=== PATIENT | female | born 1990 | race Caucasian/White ===

== ENCOUNTER 2025-04-22 14:26 | Inpatient (IN) | payer SELFPAY ==
[~2025-04-22] VITALS: Ht 172.7 cm; Wt 77.1 kg
[2025-04-22] MEDS: IV NS 0.9% 1,000 ML BAG IV ONE (16:00)
[2025-04-22 16:28] LABS: PLATELET COUNT (AUTO) 366 K/uL (150-450); RED BLOOD CELL COUNT(AUTO) 3.69 MIL/uL (4.0-5.2); RED CELL DISTRIBUTION WIDTH 12.6 % (11.5-15.0); WHITE BLOOD COUNT (AUTO) 10.4 K/uL (4.3-11.0)
[2025-04-22] MEDS ORDERED: LEVOFLOXACIN 750 MG /D5W 150ML 150 ML IV ONE (16:32)
[2025-04-22] MEDS ORDERED: ACETAMINOPHEN ES 500 MG TABLET ONE (16:33)
[2025-04-22] MEDS: LEVOFLOXACIN 750 MG /D5W 150ML 150 ML IV ONE (16:40)
[2025-04-22 16:42] LABS: INR 1.2 (0.91-1.10)
[2025-04-22 16:43] LABS: LACTIC ACID 0.8 mmol/L (0.4-2.0)
[2025-04-22 16:48] LABS: CALCIUM, SERUM 8.6 mg/dL (8.5-10.1); CREATININE 0.5 mg/dL (0.6-1.3); SODIUM SERUM 141.0 mmol/L (136-145); UREA NITROGEN, BLOOD 11.0 mg/dL (7-18)
[2025-04-22] MEDS: ACETAMINOPHEN ES 500 MG TABLET PO ONE (16:50)
[2025-04-22 16:52] LABS: ASPARTATE AMINOTRANSFERASE 18.0 U/L (15-37); TOTAL PROTEIN, SERUM 7.6 g/dL (6.4-8.2)
[2025-04-22 17:29] LABS: APPEARANCE,URINE SLIGHTLY CLOUDY (CLEAR); BLOOD, URINE NEGATIVE Ery/uL (NEGATIVE); LEUKOCYTE ESTERASE ,URINE NEGATIVE (NEGATIVE); NITRITE, URINE POSITIVE (NEGATIVE); UGLUCOSE NEGATIVE (NEGATIVE)
[2025-04-22 17:48] LABS: ADD URINE CULTURE YES
[2025-04-22] MEDS ORDERED: hydrALAZINE HCL IV 20 MG VIAL IV PRN (18:30)
[2025-04-22] MEDS ORDERED: MORPHINE SULFATE INJ 2 MG/ML DISP.SYRIN IV PRN (18:30)
[2025-04-22] MEDS ORDERED: D-MANNOSE PO (19:01)
[2025-04-22] MEDS ORDERED: MULT-213 PO (19:01)
[2025-04-22] MEDS ORDERED: ONDANSETRON HCL/PF 4 MG/2 ML VIAL ONE (19:02)
[2025-04-22] MEDS: ONDANSETRON HCL/PF 4 MG/2 ML VIAL IVP PRN (19:06)
[2025-04-22] MEDS: IV NS 0.9% 1,000 ML IV SCH (22:34)
[2025-04-22] MEDS: CIPROFLOXACIN IV RTU 400 MG in PREMIX 1 EA IV SCH (22:34)
[2025-04-22] MEDS: ACETAMINOPHEN 325 MG TABLET PO PRN (22:39)
[2025-04-22] MEDS: HEPARIN SODIUM, PORCINE 5000 UNITS/1 ML VIAL SQ SCH (22:46)
[2025-04-23] MEDS: METOCLOPRAMIDE HCL 10 MG/2 ML VIAL IV PRN (00:21)
[2025-04-23] MEDS: BACLOFEN (10 MG) 10 MG TABLET PO PRN (02:26)
[2025-04-23 08:00] VITALS: BP 121/83; TEMP 99; O2SAT 98
[2025-04-23 16:00] VITALS: BP 108/68; TEMP 97.9; O2SAT 97
[2025-04-23 20:00] VITALS: BP 125/84; TEMP 98.1; O2SAT 99
[2025-04-24 08:00] VITALS: BP 124/88; TEMP 97.3; O2SAT 98
[2025-04-24 10:00] LABS: PLATELET COUNT (AUTO) 391 K/uL (150-450); RED BLOOD CELL COUNT(AUTO) 3.57 MIL/uL (4.0-5.2); RED CELL DISTRIBUTION WIDTH 12.6 % (11.5-15.0); WHITE BLOOD COUNT (AUTO) 8.8 K/uL (4.3-11.0)
[2025-04-24 10:10] LABS: CALCIUM, SERUM 8.5 mg/dL (8.5-10.1); CREATININE 0.5 mg/dL (0.6-1.3); PHOSPHORUS 3.1 mg/dL (2.5-4.9); SODIUM SERUM 140.0 mmol/L (136-145); UREA NITROGEN, BLOOD 6.0 mg/dL (7-18)
[2025-04-24] MEDS: POTASSIUM CHLORIDE 20 MEQ TAB.PRT.SR PO ONE (12:37)
[2025-04-24 16:00] VITALS: TEMP 98.4; O2SAT 95
[2025-04-24 20:00] VITALS: BP 126/78; TEMP 98.6; O2SAT 94; O2SAT 97
[2025-04-24] MEDS: CIPROFLOXACIN HCL 500 MG TABLET PO SCH (21:32)
[2025-04-25 08:00] VITALS: BP 123/83; TEMP 97.9; O2SAT 96
[2025-04-25 10:00] VITALS: BP 123/83; TEMP 97.9; O2SAT 96
[2025-04-25] MEDS: PROPRANOLOL HCL 10 MG TABLET PO SCH ×2 (12:00→21:00)
[2025-04-25 15:16] LABS: APPEARANCE,URINE CLEAR (CLEAR); BLOOD, URINE NEGATIVE Ery/uL (NEGATIVE); LEUKOCYTE ESTERASE ,URINE NEGATIVE (NEGATIVE); NITRITE, URINE NEGATIVE (NEGATIVE); UGLUCOSE NEGATIVE (NEGATIVE)
[2025-04-25 20:00] VITALS: BP 135/96; TEMP 98.4; O2SAT 97
[2025-04-25] MEDS: AZTREONAM 2 G in IV NS 0.9% 100 ML IV SCH (20:57)
[2025-04-26 08:00] VITALS: BP 138/109; TEMP 98.2; O2SAT 97
[2025-04-26] MEDS: MINERAL OIL/PETROLATUM,WHITE 120 GM JAR TP SCH (08:30)
[2025-04-26 16:00] VITALS: BP 116/83; TEMP 97.5; O2SAT 98
[2025-04-26 20:00] VITALS: BP 95/59; TEMP 98.1; O2SAT 97
[2025-04-26 20:32] VITALS: BP 95/59; TEMP 98.1; O2SAT 97
[2025-04-27 08:00] VITALS: BP 144/104; TEMP 97.9; O2SAT 96
[2025-04-27 09:21] VITALS: BP 144/104
[2025-04-27] MEDS ORDERED: BACL10TA PO (12:43)
[2025-04-27] MEDS ORDERED: ACET325T53 PO (12:43)
[2025-04-27] MEDS ORDERED: AMOX-430 PO (12:43)
[2025-04-27 12:47] VITALS: TEMP 97.9
== END 2025-04-27 16:22 | disposition home or self-care (01) | DRG 871 ==
LOC: ER 15:27 → TELE 20:43 → MED 21:11
PROVIDERS: ADMIT Internal Medicine; ATTEND Nurse Practitioner Acute Care
DX: A41.9 Sepsis, unspecified organism (principal); G82.50 Quadriplegia, unspecified; D68.59 Other primary thrombophilia; G90.89 Other disorders of autonomic nervous system; R65.20 Severe sepsis without septic shock; N30.90 Cystitis, unspecified without hematuria; B96.89 Other specified bacterial agents as the cause of diseases classified elsewhere; E66.9 Obesity, unspecified; Z20.822 Contact with and (suspected) exposure to COVID-19; Z87.828 Personal history of other (healed) physical injury and trauma; Z87.440 Personal history of urinary (tract) infections; Z99.3 Dependence on wheelchair; Z88.1 Allergy status to other antibiotic agents; Z93.3 Colostomy status; V89.2XXS Person injured in unspecified motor-vehicle accident, traffic, sequela; Z68.25 Body mass index [BMI] 25.0-25.9, adult; L84 Corns and callosities; M21.379 Foot drop, unspecified foot; Z74.09 Other reduced mobility; Z86.69 Personal history of other diseases of the nervous system and sense organs
CPT/HCPCS: 36415; 71045-TC; 80048-TC; 80076-TC; 81001; 83605-TC; 83735-TC; 84100-TC; 84702-TC; 85025-TC; 85730-TC; 87040-TC; 87086-TC; 97112-TC; 97530-TC; 97535-TC; A4216; A4223; G0378; J0744; J1644; J1956; J2405; J2765; J3490; J7030; J7050